=== PATIENT | male | born 1950 | race Hispanic/Latino ===

== ENCOUNTER 2017-06-11 13:16 | Inpatient (IN) | payer MEDICARE ==
[2017-06-11] MEDS ORDERED: Eptifibatide 20 mg/10mL Inj IV ONE (13:33)
[2017-06-11] MEDS ORDERED: Iohexol 350 MG/100 ML VIAL ONE (13:34)
[2017-06-11] MEDS ORDERED: Iohexol 350mgl/ml 50 ML ONE ×2 (13:34→13:57)
[2017-06-11] MEDS ORDERED: Lidocaine 2% Inj (20ml) ONE (13:34)
[2017-06-11] MEDS ORDERED: Phenylephrine 10 mg/ml Inj ONE (13:35)
--- NOTE | 2017-06-11 13:35 | ED PDOC ---
Arrival/HPI - General Time Seen by Provider: 06/11/17 13:27 Historian: Patient - History of Present Illness Narrative History of Present Illness (Text): 06/11/17 13:27 Jovan Horne is a 67 year old male who presents to the emergency department complaining of severe left arm pain that radiates up which began prior to arrival. Patient's family states that patient took one daily baby aspirin this morning. Patient denies any injury, chest pain, shortness of breath, back pain, leg swelling, or any other complaints at this time. PMD: Dr. Mitchel Santamaria Time/Duration: Prior to Arrival Symptom Onset: Sudden Symptom Course: Unchanged Context: Home Past Medical History - Provider Review Nursing Documentation Reviewed: Yes Family/Social History - Physician Review Nursing Documentation Reviewed: Yes Family/Social History: No Known Family HX Allergies/Home Meds Allergies/Adverse Reactions: Allergies No Known Allergies Allergy (Unverified 06/11/17 13:31) Home Medications: Home Meds Medication Instructions Recorded Confirmed Aspirin [Garnett Aspirin] 81 mg PO DAILY 06/11/17 06/11/17 Review of Systems - Physician Review All systems were reviewed & negative as marked: Yes - Review of Systems Constitutional: absent: Fevers, Night Sweats Eyes: absent: Vision Changes ENT: absent: Hearing Changes Respiratory: absent: SOB, Cough Cardiovascular: absent: Chest Pain Gastrointestinal: absent: Abdominal Pain Genitourinary Male: absent: Dysuria Musculoskeletal: Other (Left arm pain) Skin: absent: Rash Neurological: absent: Headache, Dizziness Physical Exam Vital Signs Reviewed: Yes Vital Signs Temp Pulse Resp BP Pulse Ox 06/11/17 13:43 66 16 187/100 H 98 06/11/17 13:27 98.9 F 66 18 188/93 H 100 Temperature: Afebrile Blood Pressure: Hypertensive Pulse: Regular Respiratory Rate: Normal Appearance: Positive for: Well-Appearing, Non-Toxic, Comfortable Pain Distress: None Mental Status: Positive for: Alert and Oriented X 3 - Systems Exam Head: Present: Atraumatic, Normocephalic Pupils: Present: PERRL Extroacular Muscles: Present: EOMI Conjunctiva: Present: Normal Mouth: Present: Moist Mucous Membranes Neck: Present: Normal Range of Motion Respiratory/Chest: Present: Clear to Auscultation, Good Air Exchange. No: Respiratory Distress, Accessory Muscle Use Cardiovascular: Present: Regular Rate and Rhythm, Normal S1, S2. No: Murmurs Abdomen: Present: Normal Bowel Sounds. No: Tenderness, Distention, Peritoneal Signs Back: Present: Normal Inspection Upper Extremity: Present: Normal Inspection. No: Cyanosis, Edema Lower Extremity: Present: Normal Inspection. No: Edema Neurological: Present: GCS=15, CN II-XII Intact, Speech Normal Skin: Present: Warm, Dry, Normal Color. No: Rashes Psychiatric: Present: Alert, Oriented x 3, Normal Insight, Normal Concentration Medical Decision Making ED Course and Treatment: 06/11/17 13:29 Impression: 67 year old male complaining of severe left arm pain that radiates up prior to arrival. Differential Diagnosis included but are not limited to: STEMI Plan: -- EKG -- Chest X-ray -- Labs -- Aspirin, Plavix, and Integrilin -- Reassess and disposition Progress Notes: EKG: Ordered, reviewed, and independently interpreted the EKG. Rate : 53 BPM Rhythm : Sinus bradycardia Interpretation : ST elevations greater than 1mm in inferior leads. Reciprocal ST depression in leads V2, V3, and V4. Comparison : No previous EKG for comparison. 06/11/17 13:30 Code Heart called on patient. Aspirin 162mg PO ordered. Patient only had a baby aspirin today. 06/11/17 13:[address] Saucedo, who recommends Plavix and Integrillin for patient. Discussed case with Dr. Ricki Santamaria, PMD who states to admit to the hospitalist. - Critical Care Critical Care Minutes: 30 minutes - Lab Interpretations Lab Results: 06/11/17 13:30 06/11/17 13:30 Lab Results 06/11/17 13:30: Sodium 141, Potassium 4.1, Chloride 103, Carbon Dioxide 22, Anion Gap 20, BUN 11, Creatinine 1.0, Est GFR ( Amer) > 60, Est GFR (Non- Af Amer) > 60, Random Glucose 88, Calcium 9.2, Total Bilirubin 1.0, AST 59, ALT 54, Alkaline Phosphatase 84, Lactate Dehydrogenase 542, Total Creatine Kinase 190, Troponin I 0.06, Total Protein 8.0, Albumin 4.7, Globulin 3.3, Albumin/ Globulin Ratio 1.4 06/11/17 13:30: PT 11.1, INR 1.03 06/11/17 13:30: WBC 6.5, RBC 4.82, Hgb 16.1, Hct 45.7, MCV 94.8, MCH 33.4, MCHC 35.2, RDW 13.9, Plt Count 174, MPV 9.9, Gran % 48.6 L, Lymph % (Auto) 38.9 H, [place] % (Auto) 9.1 H, Eos % (Auto) 2.5, Baso % (Auto) 0.9, Gran # 3.15, Lymph # 2.5, [place] # 0.6, Eos # 0.2, Baso # 0.06 I have reviewed the lab results: Yes - RAD Interpretation Radiology Orders: 06/11/17 13:33 CHEST PORTABLE [RAD] Stat - Medication Orders Current Medication Orders: Discontinued Medications Aspirin (Aspirin Chewable) 162 mg PO STAT STA Stop: 06/11/17 13:33 Aspirin (Aspirin Chewable) Confirm Administered Dose 162 mg .ROUTE .STK-MED ONE Stop: 06/11/17 13:36 Atropine Sulfate (Atropine) Confirm Administered Dose 1 mg .ROUTE .STK-MED ONE Stop: 06/11/17 13:34 Bivalirudin (Angiomax) Confirm Administered Dose 250 mg IV .STK-MED ONE Stop: 06/11/17 13:35 Clopidogrel Bisulfate (Plavix) 600 mg PO STAT STA Stop: 06/11/17 13:34 Clopidogrel Bisulfate (Plavix) Confirm Administered Dose 600 mg .ROUTE .STK-MED ONE Stop: 06/11/17 13:36 Eptifibatide (Integrilin Bolus) 14.7 mg 0.18 mg/kg (14.7 mg) IV ONCE ONE Stop: 06/11/17 13:34 Last Admin: 06/11/17 14:03 Dose: 7.3 mg Comments: 1st dose given to straight to cardiac cath Eptifibatide (Integrilin Bolus) Confirm Administered Dose 20 mg IVP .STK-MED ONE Stop: 06/11/17 13:50 Fentanyl (Fentanyl) Confirm Administered Dose 100 mcg .ROUTE .STK-MED ONE Stop: 06/11/17 13:56 Heparin Sodium (Porcine) (Heparin) Confirm Administered Dose 10,000 units .ROUTE .STK-MED ONE Stop: 06/11/17 13:46 Heparin Sodium (Porcine) (Heparin 1000 Units/500 Ml Ns) Confirm Administered Dose 1,500 mls @ ud IV .STK-MED ONE Stop: 06/11/17 13:35 Eptifibatide (Integrilin) Confirm Administered Dose 75 mg in 100 mls @ ud IV .STK-MED ONE Stop: 06/11/17 13:37 Eptifibatide (Integrilin) Confirm Administered Dose 75 mg in 100 mls @ ud IV .STK-MED ONE Stop: 06/11/17 13:50 Nitroglycerin/Dextrose (Nitroglycerin 50 Mg/250 Ml D5w) Confirm Administered Dose 50 mg in 250 mls @ ud IV .STK-MED ONE Stop: 06/11/17 14:13 Iodixanol (Visipaque 320 Mg/Ml 100 Ml) Confirm Administered Dose 100 ml IV .STK- MED ONE Stop: 06/11/17 13:37 Iodixanol (Visipaque 320 Mg/Ml 200 Ml) Confirm Administered Dose 200 ml IV .STK- MED ONE Stop: 06/11/17 13:37 Iohexol (Omnipaque 350mg/Ml 50 Ml) Confirm Administered Dose 50 ml .ROUTE .STK- MED ONE Stop: 06/11/17 13:35 Iohexol (Omnipaque 350 100 Ml) Confirm Administered Dose 350 mg .ROUTE .STK-MED ONE Stop: 06/11/17 13:35 Iohexol (Omnipaque 350 150 Ml) Confirm Administered Dose 150 ml .ROUTE .STK-MED ONE Stop: 06/11/17 13:35 Iohexol (Omnipaque 350mg/Ml 50 Ml) Confirm Administered Dose 50 ml .ROUTE .STK- MED ONE Stop: 06/11/17 13:58 Lidocaine HCl (Lidocaine 2% 20ml Vial) Confirm Administered Dose 20 ml .ROUTE .STK-MED ONE Stop: 06/11/17 13:35 Midazolam HCl (Versed Inj) Confirm Administered Dose 2 mg .ROUTE .STK-MED ONE Stop: 06/11/17 13:56 Midazolam HCl (Versed Inj) Confirm Administered Dose 2 mg .ROUTE .STK-MED ONE Stop: 06/11/17 14:20 Phenylephrine HCl (Phenylephrine Inj) Confirm Administered Dose 10 mg .ROUTE .STK-MED ONE Stop: 06/11/17 13:36 - Scribe Statement The provider has reviewed the documentation as recorded by the Kriss Galaviz Provider Scribe Attestation: All medical record entries made by the Scribe were at my direction and personally dictated by me. I have reviewed the chart and agree that the record accurately reflects my personal performance of the history, physical exam, medical decision making, and the department course for this patient. I have also personally directed, reviewed, and agree with the discharge instructions and disposition. Disposition/Present on Arrival - Present on Arrival Any Indicators Present on Arrival: No - Disposition Have Diagnosis and Disposition been Completed?: Yes Diagnosis: STEMI (ST elevation myocardial infarction) Disposition Time: 13:36 Patient Plan: Admission Condition: CRITICAL
[2017-06-11] MEDS ORDERED: Eptifibatide 0.75 mg/ml 0 MG/0 ML BOTTLE IV ONE ×2 (13:36→13:49)
[2017-06-11] MEDS ORDERED: Iodixanol 320 MG/ML 200 ML BOTTLE IV ONE (13:36)
[2017-06-11] MEDS ORDERED: Iodixanol 320 MG/ML 100 ML BOTTLE IV ONE (13:36)
[2017-06-11 13:40] LABS: BASO # 0.06 K/mm3 (0.0-2.0); BASO % 0.9 % (0.0-3.0); EOS # 0.2 (0.0-0.7); EOS % 2.5 % (1.5-5.0); GRAN # 3.15 (1.4-6.5); GRAN % 48.6 % (50.0-68.0); HEMATOCRIT 45.7 % (42.0-52.0); LYMPH # 2.5 (1.2-3.4); LYMPH % 38.9 % (22.0-35.0); MEAN CELL VOLUME 94.8 fl (80.0-105.0); MEAN CORPUSCULAR HEMOGLOBIN 33.4 pg (25.0-35.0); MEAN CORPUSCULAR HGB CONC 35.2 g/dl (31.0-37.0); MEAN PLATELET VOLUME 9.9 fl (7.0-11.0); MONO # 0.6 (0.1-0.6); MONO % 9.1 % (1.0-6.0); RED CELL DISTRIBUTION WIDTH 13.9 % (11.5-14.5); WHITE BLOOD COUNT 6.5 10^3/ul (4.5-11.0)
[2017-06-11 13:47] LABS: ALB/GLOB RATIO 1.4 (1.1-1.8); ALKALINE PHOSPHATASE 84 U/L (38-133); ALT/SGPT 54 U/L (7-56); AST/SGOT 59 U/L (15-59); BLOOD UREA NITROGEN 11 mg/dL (7-21); CALCIUM 9.2 mg/dL (8.4-10.5); CARBON DIOXIDE 22 mmol/L (21-33); CHLORIDE 103 mmol/L (98-107); GFR AFRICAN-AMERICAN > 60; GLUCOSE,RANDOM 88 mg/dL (70-110); POTASSIUM 4.1 mmol/L (3.6-5.0); SODIUM 141 mmol/L (132-148)
[2017-06-11 13:49] LABS: INR 1.03 (0.93-1.08)
[2017-06-11] MEDS ORDERED: Eptifibatide 20 mg/10mL Inj IVP ONE (13:49)
[2017-06-11] MEDS ORDERED: Midazolam 2 MG/2 ML VIAL ONE ×3 (13:55→14:49)
[2017-06-11 13:58] LABS: TROPONIN I 0.06 ng/mL
[2017-06-11] MEDS: Eptifibatide 0.75 mg/ml 75 MG/100 ML BOTTLE IV SCH ×2 (14:00→20:00)
--- NOTE | 2017-06-11 14:01 | RAD ---
HISTORY: chest pain COMPARISON: No prior. FINDINGS: LUNGS: No active pulmonary disease. PLEURA: No significant pleural effusion identified, no pneumothorax apparent. CARDIOVASCULAR: Normal. OSSEOUS STRUCTURES: No significant abnormalities. VISUALIZED UPPER ABDOMEN: Normal. OTHER FINDINGS: None. IMPRESSION: No active disease.
[2017-06-11] MEDS ORDERED: Nitroglycerin 50mg in D5W 50 MG/250 ML BOTTLE IV ONE (14:12)
--- NOTE | 2017-06-11 14:26 | CP.PCM.PN ---
Subjective - Date & Time of Evaluation Date of Evaluation: 06/11/17 Time of Evaluation: 13:29 - Subjective Subjective: Responded to code heart in the ER, called at 1:29 PM. Patient initially evaluated by ER physician, who initiated treatment. Transferred patient to the clinical laboratory manager with O2 and field examiner in place, accompanied by ER staff, resident automation driver, and house doctor, no events en route. Patient endorsed to clinical laboratory manager staff. Objective - Vital Signs/Intake and Output Vital Signs (last 24 hours): Temp Pulse Resp BP Pulse Ox 98.9 F 66 16 187/100 H 98 06/11/17 13:27 06/11/17 13:43 06/11/17 13:43 06/11/17 13:43 06/11/17 13:43 - Labs Labs: 06/11/17 13:30 06/11/17 13:30
[2017-06-11] MEDS ORDERED: DOBUTamine 500mg/250ml D5W 500 MG/250 ML BAG ONE (14:55)
[2017-06-11] MEDS ORDERED: Sodium Chloride 0.9% 1,000 ML IV SCH (15:30)
--- NOTE | 2017-06-11 16:34 | CARD ---
APPROVED REPORT EKG Measurement Heart [id number] OH [id number] <Conclusion> Sinus bradycardia ST elevation, consider inferior injury or acute infarct ACUTE DE Consider right ventricular involvement in acute inferior infarct Abnormal ECG
--- NOTE | 2017-06-11 17:47 | CARD ---
APPROVED REPORT EKG Measurement Heart [id number] DC [id number] <Conclusion> Normal sinus rhythm Normal ECG
--- NOTE | 2017-06-11 17:47 | CP.PCM.CON ---
<JOSE GIRON - Last Filed: 06/11/17 17:31> History of Present Illness - History of Present Illness History of Present Illness: ICU CONSULT NOTE: CC: Left Arm Pain HPI: Mr. Horne is a 67 year old male with a past medical history significant for HTN, HLD, carotid artery stenosis and gout who presented to the ED complaining of 24 hours of left arm pain. Patient states that he began to experience a dull pain radiating from his left shoulder to his left elbow earlier today while at rest with no known precipitating event. He states that he had never had this pain before and reported no alleviating/aggravating factors. Patient reports taking a baby aspirin with minimal to no relief and then decided he needed further evaluation when he began to feel the pain radiating to his neck. Patient denies experiencing any fever, chills, headache, changes in vision, LOC, dizziness, jaw pain, chest pain, palpitations, shortness of breath, cough, abdominal pain, N/V, diarrhea or any other numbness/ tingling/weakness of any of his other extremities. Upon arrival to the [facility] ED, patient was found to be having an acute inferior wall STEMI on an EKG, for which a code heart was called, given integrilin, and was immediately taken to cardiac laborer heading. Two NELL stents were placed in the proximal and mid RCA, respectively. Currently, patient reports that he has some residual chest pain but that it is only mild discomfort. He reports being otherwise asymptomatic. denies experiencing any fever, chills, headache, changes in vision, LOC, dizziness, jaw pain, chest pain, palpitations, shortness of breath, cough, abdominal pain, N/V, diarrhea, constipation, any urinary symptoms, or any other numbness/ tingling/weakness of any extremity. PMH: HTN, HLD, Carotid Artery Stenosis, and Gout PSH: None Family: 5 sisters and 1 brother with various cardiac history, including CAD and CA's. 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 with his Allergies: NKDA Home Medications: Colchicine and one ASA 81mg daily Review of Systems - Review of Systems Review of Systems: Please refer to HPI Past Patient History - Infectious Disease Hx of Infectious Diseases: None - Past Social History Smoking Status: Unknown If Ever Smoked - PSYCHIATRIC Hx Substance Use: No - ANESTHESIA Hx Anesthesia: No Meds Allergies/Adverse Reactions: Allergies Allergy/AdvReac Type Severity Reaction Status Date / Time No Known Allergies Allergy Unverified 06/11/17 13:31 - Medications Medications: Current Medications Aspirin (Ecotrin) 81 mg PO DAILY [facility] Atorvastatin Calcium (Lipitor) 40 mg PO DIN [facility] Clopidogrel Bisulfate (Plavix) 75 mg PO DAILY [facility] Folic Acid (Folic Acid) 1 mg PO DAILY [facility] Heparin Sodium (Porcine) (Heparin) 5,000 units SC Q12 [facility] PRN Reason: Protocol Sodium Chloride (Sodium Chloride 0.9%) 1,000 mls @ 100 mls/hr IV .Q10H [facility] Stop: 06/11/17 23:00 Lorazepam (Ativan) 2 mg IVP Q6H PRN; Protocol PRN Reason: Anxiety Multivitamins/Minerals (Therapeutic-M Tab) 1 tab PO 0800 [facility] Ondansetron HCl (Zofran Inj) 4 mg IVP Q4H PRN PRN Reason: Nausea/Vomiting Pantoprazole Sodium (Protonix Ec Tab) 40 mg PO 0600 [facility] Thiamine HCl (Vitamin B1 Tab) 100 mg PO DAILY [facility] Physical Exam - Constitutional Appears: Non-toxic, No Acute Distress - Head Exam Head Exam: ATRAUMATIC, NORMOCEPHALIC - Eye Exam Eye Exam: EOMI, Normal appearance, PERRL Pupil Exam: NORMAL ACCOMODATION - ENT Exam ENT Exam: Mucous Membranes Moist, Normal Exam, Normal Oropharynx - Neck Exam Neck exam: Positive for: Full Rom. Negative for: Lymphadenopathy - Respiratory Exam Respiratory Exam: Clear to Auscultation Bilateral, NORMAL BREATHING PATTERN. absent: Rales, Rhonchi, Wheezes, Respiratory Distress - Cardiovascular Exam Cardiovascular Exam: REGULAR RHYTHM, RRR, +S1, +S2. absent: Tachycardia, Systolic Murmur - GI/Abdominal Exam GI & Abdominal Exam: Normal Bowel Sounds, Soft. absent: Tenderness - Exam Exam: absent: Bladder Distension - Extremities Exam Extremities exam: Positive for: normal capillary refill, normal inspection, pedal pulses present. Negative for: calf tenderness, pedal edema - Back Exam Back exam: absent: CVA tenderness (L), CVA tenderness (R) - Neurological Exam Neurological exam: Alert, Oriented x3 - Psychiatric Exam Psychiatric exam: Normal Affect, Normal Mood - Skin Skin Exam: Dry, Intact, Normal Color, Warm Results - Vital Signs Recent Vital Signs: Last Vital Signs Temp 98.9 F 06/11/17 13:27 Pulse 66 06/11/17 17:20 Resp 16 06/11/17 17:20 BP 158/105 H 06/11/17 17:15 Pulse Ox 98 06/11/17 17:20 - Labs Result Diagrams: 06/11/17 13:30 06/11/17 13:30 Assessment & Plan - Assessment and Plan (Free Text) Assessment: 67 year old male with a past medical history significant for HTN, HLD, carotid artery stenosis and gout who presented to the ED complaining of 24 hours of left arm pain. Patient was found to have an inferior wall STEMI, taken to cardiac laborer heading, and two NELL stents were placed in the proximal and mid RCA. Plan: Neuro: -Patient reports history of chronic alcohol abuse -Start daily PO Thiamine, Folic Acid and MV supplements -Ativan 2mg IVP Q6H PRN for symptoms of alcohol withdrawal -CIWA Protocol and Seizure Precautions Cardio: -Two NELL stents placed in proximal and mid RCA -Single troponin found to be mildly elevated at 0.06 in ED -EKG in ED showed sinus bradycardia and ST elevations greater than 1mm in inferior leads with reciprocal ST depression in leads V2, V3, and V4 -Post Cath repeat EKG shows NSR and resolution of previously mentioned ST segment changes -Continue Integrilin, ASA, Plavix and Lipitor -Repeat EKG and ECHO ordered for 0700 on 06/12 -Lipid panel, Hemoglobin A1C and TSH pending -Dr. Saucedo, machine paint mixer, is following patient while at [facility] GI: -Heart Healthy Diet -Zofran 4mg IVP Q4H PRN for N/V GI Prophylaxis: Protonix DVT Prophylaxis: SCD's Patient seen and case discussed with attending, Dr. Stafford. - Date & Time Date: 06/11/17 Time: 17:49 <Tristian Claudio - Last Filed: 06/11/17 18:16> Meds - Medications Medications: Current Medications Aspirin (Ecotrin) 81 mg PO DAILY [facility] Atorvastatin Calcium (Lipitor) 40 mg PO DIN [facility] Clopidogrel Bisulfate (Plavix) 75 mg PO DAILY [facility] Folic Acid (Folic Acid) 1 mg PO DAILY [facility] Sodium Chloride (Sodium Chloride 0.9%) 1,000 mls @ 100 mls/hr IV .Q10H [facility] Stop: 06/11/17 23:00 Eptifibatide (Integrilin) 75 mg in 100 mls @ 12.779 mls/hr IV .Q7H50M [facility]; 2 MCG/KG/MIN PRN Reason: Protocol Stop: 06/12/17 08:52 Lorazepam (Ativan) 2 mg IVP Q6H PRN; Protocol PRN Reason: Anxiety Multivitamins/Minerals (Therapeutic-M Tab) 1 tab PO 0800 [facility] Ondansetron HCl (Zofran Inj) 4 mg IVP Q4H PRN PRN Reason: Nausea/Vomiting Pantoprazole Sodium (Protonix Ec Tab) 40 mg PO 0600 [facility] Thiamine HCl (Vitamin B1 Tab) 100 mg PO DAILY [facility] Results - Vital Signs Recent Vital Signs: Last Vital Signs Temp 98.9 F 06/11/17 13:27 Pulse 66 06/11/17 17:20 Resp 16 06/11/17 17:20 BP 158/105 H 06/11/17 17:15 Pulse Ox 98 06/11/17 17:20 - Labs Result Diagrams: 06/11/17 13:30 06/11/17 13:30 Assessment & Plan - Assessment and Plan (Free Text) Plan: Patient seen and examined with resident, agree with HPI, A/P. Patient is 67yo male with PMhx of HTN, HLD, EtOH abuse, presents with Left sided chest pain/arm pain, found to have STEMI, inferior leads, with stents placed to RCA. Currently the patient is afebrile, HD stable, comfortable, with minimal left sided chest pain. No other constitutional symptoms. CAD/STEMI EtOH abuse Recommend: - Thiamine, folic acid, MVT - IVF - Ativan PRN - CIWA protocol - ASA, Plavix, Statin - BB - Integrellin x 18hours - Check Lipid Panel, HgbA1C - DVT ppx, SCDs - Low chol diet
[2017-06-11 18:31] VITALS: BMI 27.3
[2017-06-11] MEDS ORDERED: Pneumococcal 23-Valent Vaccine IM ONE (18:32)
--- NOTE | 2017-06-11 21:34 | CARDCATH ---
PROCEDURE DATE: 06/11/2017 PERFORMING PHYSICIAN: Jim Saucedo MD HISTORY: The patient is a 67-year-old male who presents with chest pain with shoulder pain radiating to the left arm since this morning. The patient has no previous cardiac history. His cardiac risk factors include a history of hypertension as well as extensive secondary smoke from his . No diabetes mellitus noted. SOCIAL HISTORY: The patient does not smoke but is alcoholic with multiple beers per day. REVIEW OF SYSTEMS: A 14-point review of systems was reviewed in detail. His cardiac symptomatology were as above. Because of the acute inferior wall myocardial infarction, the patient was brought to the catheterization laboratory technician emergently. PROCEDURE: Emergency cardiac catheterization and percutaneous transluminal coronary angioplasty. DESCRIPTION OF PROCEDURE: The right femoral artery was cannulated with a 6-Thai sheath. There was no complication. Initial coronary arteriography revealed an occluded proximal RCA with evidence of thrombus. The left main artery was unremarkable. The ostium of the LAD revealed a 60% stenoses. The midportion of the LAD revealed a 60-70% stenoses. Diagonal vessels revealed intimal irregularities. The circumflex artery and obtuse marginal branches revealed intimal irregularities without significant stenoses. LV gram revealed normal LV function with an EF of 60%. The patient was given 4000 units of intravenous heparin, which resulted in ACT of 290 at the end of the procedure. The patient had received aspirin, Plavix, as well as intravenous Integrilin in the ER. The guiding catheter was placed in the ostium of the RCA and 0.014 ATW wire was used to cross the RCA. A 2.0 balloon was utilized to predilate the lesion. After balloon dilatation, the patient became asystolic as well as severely hypotensive, which responded to atropine as well as pressors. He was started on intravenous dobutamine. Once the patient regained pressures of 90, 2.5 balloon was utilized to dilate the lesion. This is followed by placement of a 3.5 x 18 mm drug-eluting stent, which was deployed at 70 atmospheres of pressure. Repeat coronary angiography reveals an excellent result with no residual stenosis and SANTY III flow. Angio-Seal was used to close the femoral artery site. The dobutamine was tapered off and the patient's blood pressure returned to 140 systolic with a heart rate of 90. The patient was transferred to the coronary care unit in stable condition. SUMMARY: In summary, the procedure was successful for an emergency PTCA and stent of an occluded proximal RCA stenoses. Cardiac catheterization reveals two-vessel CAD. LV function is normal. Transient cardiogenic shock secondary to asystole during the procedure, responding to medical therapy. Given these findings, the patient will need to remain on aspirin and Plavix as well as Integrilin for the next 18 hours. In addition, I have discussed the need to stop drinking given his alcoholism. I have discussed with the family about the need to have the patient avoid all the secondary smoke that he is receiving. Jim Saucedo MD
--- NOTE | 2017-06-12 00:01 | CP.PCM.HP ---
<SISI FRANKEL - Last Filed: 06/11/17 23:46> History of Present Illness - History of Present Illness History of Present Illness: CC: Left arm pain HPI: 67 yo M with a PMH of gout, chronic alchohol abuse, carotid stenosis and previously with HTN and HLD now off medications presented to the ER, ambulatory , for L arm pain for the prior two hours. First noted when walking his dog, and it improved after resting, but then returned spontaneously, and was 10/10 in severity. He denied SOB, CP, N/V, GEORGE, dizziness. In the ER, EKG showed STEMI and code heart was called. Patient was given ASA, plavix, and integrilin in the ER, and was rushed the laborer mine, where he had PCI with placement of a drug eluting stent in the proximal RCA. F/u EKG showed NSR with no ST elevations. 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 Sedentary lifestyle with poor diet. All: NKDA Constitutional: pt denies fever, chills, generalized weakness ENT: pt denies dysphagia, otalgia, hearing deficit, rhinorrhea Eyes: pt denies sudden loss of vision, diplopia, blurred vision MSK: +Left upper arm pain pt denies muscle stiffness, joint pain, extremity cramping Cardio: pt denies sob, heart murmur, CP Pulm: pt denies cough, hemoptysis, wheeze GI: pt denies loss of appetite, abdominal pain, constipation, melena, n/v/d : pt denies burning on urination, urinary frequency, hematuria, urinary urgency Neuro: pt denies paresis, paresthesia, dizziness, george, numbness, tingling Derm: pt denies skin changes, lesions, nail changes Endo: pt denies intolerance to heat/cold, diaphoresis, night sweats, polydipsia Psych: pt denies anxiety, depression, mood changes Present on Admission - Present on Admission Any Indicators Present on Admission: No Past Patient History - Infectious Disease Hx of Infectious Diseases: None - Past Social History Smoking Status: Unknown If Ever Smoked - CARDIAC Hx Hypertension: Yes Other/Comment: Carotid stenosis - MUSCULOSKELETAL/RHEUMATOLOGICAL Hx Falls: No Other/Comment: "Maciej Horse" - GASTROINTESTINAL Other/Comment: Alcoholism - PSYCHIATRIC Hx Substance Use: No - ANESTHESIA Hx Anesthesia: No Meds Allergies/Adverse Reactions: Allergies Allergy/AdvReac Type Severity Reaction Status Date / Time No Known Allergies Allergy Unverified 06/11/17 13:31 Physical Exam - Constitutional Appears: Non-toxic, No Acute Distress - Head Exam Head Exam: ATRAUMATIC, NORMOCEPHALIC - Eye Exam Eye Exam: EOMI, Normal appearance, PERRL - ENT Exam ENT Exam: Mucous Membranes Moist - Neck Exam Neck exam: Negative for: Lymphadenopathy, Tenderness - Respiratory Exam Respiratory Exam: Clear to Auscultation Bilateral, NORMAL BREATHING PATTERN. absent: Rales, Rhonchi, Wheezes - Cardiovascular Exam Cardiovascular Exam: RRR, +S1, +S2 - GI/Abdominal Exam GI & Abdominal Exam: Normal Bowel Sounds, Soft. absent: Tenderness - Extremities Exam Extremities exam: Positive for: normal inspection. Negative for: calf tenderness, pedal edema - Neurological Exam Neurological exam: Alert, CN II-XII Intact, Oriented x3 - Psychiatric Exam Psychiatric exam: Normal Affect, Normal Mood - Skin Skin Exam: Dry, Intact, Normal Color Results - Vital Signs Recent Vital Signs: Last Vital Signs Temp 98 F 06/11/17 16:23 Pulse 68 06/11/17 18:30 Resp 13 06/11/17 18:30 BP 141/90 06/11/17 18:30 Pulse Ox 94 L 06/11/17 18:30 - Labs Result Diagrams: 06/11/17 13:30 06/11/17 13:30 Assessment & Plan - Assessment and Plan (Free Text) Assessment: 67 yo M with PMH of carotid stenosis, gout, HTN, HLD with STEMI s/p PCI and NELL placement today, admitted to ICU Plan: 1. STEMI s/p PCI and stent - Patient initially presented with left arm pain, found to have inferior wall STEMI, code heart called - Received ASA, plavix, and integrilin in ER - s/p PCI and drug eluting stent placement in proximal RCA today with improvement in symptoms and EKG changes - On ASA, Plavix, Integrilin, and Lipitor per cardio - Repeat EKG and ECHO ordered for tomorrow AM - Lipid panel, Hemoglobin A1C and TSH pending - Dr. Saucedo, perfect bind machine operator, is following patient while at [facility] [place] - Groin checks Q1 - Heart healthy diet 2. History of alcohol abuse - CIWA protocol started - On thiamine, folate, MVT - On Ativan PRN - Discussed importance of cessation GI Prophylaxis: Protonix DVT Prophylaxis: SCD's Patient seen and case discussed with attending <Roxana Simmons - Last Filed: 06/12/17 16:27> Results - Vital Signs Recent Vital Signs: Last Vital Signs Temp 97 F L 06/12/17 11:30 Pulse 58 L 06/12/17 14:00 Resp 16 06/12/17 11:30 BP 136/87 06/12/17 11:30 Pulse Ox 98 06/12/17 10:15 - Labs Result Diagrams: 06/12/17 05:30 06/12/17 05:30 Labs: Laboratory Results - last 24 hr 06/12/17 06/12/17 06/12/17 05:30 05:30 05:30 WBC 4.5 D RBC 4.50 Hgb 14.8 Hct 43.0 MCV 95.6 MCH 32.9 MCHC 34.4 RDW 14.2 Plt Count 149 MPV 10.0 Gran % 64.3 Lymph % (Auto) 24.7 [place] % (Auto) 8.4 H Eos % (Auto) 2.2 Baso % (Auto) 0.4 Gran # 2.91 Lymph # 1.1 L [place] # 0.4 Eos # 0.1 Baso # 0.02 Sodium 137 Potassium 4.1 Chloride 105 Carbon Dioxide 24 Anion Gap 12 BUN 10 Creatinine 0.8 Est GFR ( Amer) > 60 Est GFR (Non-Af Amer) > 60 Random Glucose 102 Hemoglobin A1c 4.9 Calcium 8.8 Triglycerides 164 H Cholesterol 239 H LDL Cholesterol Direct 188 H HDL Cholesterol 52 TSH 3rd Generation 06/12/17 05:30 WBC RBC Hgb Hct MCV MCH MCHC RDW Plt Count MPV Gran % Lymph % (Auto) [place] % (Auto) Eos % (Auto) Baso % (Auto) Gran # Lymph # [place] # Eos # Baso # Sodium Potassium Chloride Carbon Dioxide Anion Gap BUN Creatinine Est GFR ( Amer) Est GFR (Non-Af Amer) Random Glucose Hemoglobin A1c Calcium Triglycerides Cholesterol LDL Cholesterol Direct HDL Cholesterol TSH 3rd Generation 4.1 Attending/Attestation - Attestation I have personally seen and examined this patient.: Yes I have fully participated in the care of the patient.: Yes I have reviewed all pertinent clinical information: Yes Notes (Text): I have seen and examined the patient at bedside. Agree with the above note with the following additions/ exceptions: Briefly this is 67 year old male with history of HTN, HLD, EtOH abuse, former smoker who walked into the ED and code heart/ STEMI was called. He underwent cardiac cath and stents were placed in proximal RCA. He is on asa, plavix, statins, lipitor and integrillin. Upon discharge patient will follow up with Dr Santamaria. Dr Roxana Simmons.
[2017-06-12] MEDS ORDERED: Morphine 2 mg/ml ISec IVP ONE (02:43)
[2017-06-12] MEDS: Eptifibatide 0.75 mg/ml 75 MG/100 ML BOTTLE IV SCH (04:46)
[2017-06-12] MEDS ORDERED: Pantoprazole 40 mg EC Tab PO SCH (06:00)
[2017-06-12 06:30] LABS: BASO # 0.02 K/mm3 (0.0-2.0); BASO % 0.4 % (0.0-3.0); EOS # 0.1 (0.0-0.7); EOS % 2.2 % (1.5-5.0); GRAN # 2.91 (1.4-6.5); GRAN % 64.3 % (50.0-68.0); LYMPH # 1.1 (1.2-3.4); LYMPH % 24.7 % (22.0-35.0); MEAN CELL VOLUME 95.6 fl (80.0-105.0); MEAN CORPUSCULAR HEMOGLOBIN 32.9 pg (25.0-35.0); MEAN CORPUSCULAR HGB CONC 34.4 g/dl (31.0-37.0); MONO # 0.4 (0.1-0.6); MONO % 8.4 % (1.0-6.0); RED CELL DISTRIBUTION WIDTH 14.2 % (11.5-14.5); WHITE BLOOD COUNT 4.5 10^3/ul (4.5-11.0)
[2017-06-12 06:47] LABS: BLOOD UREA NITROGEN 10 mg/dL (7-21); CALCIUM 8.8 mg/dL (8.4-10.5); CARBON DIOXIDE 24 mmol/L (21-33); CHLORIDE 105 mmol/L (95-110); CHOLESTEROL 239 mg/dL (130-200); GFR AFRICAN-AMERICAN > 60; GLUCOSE,RANDOM 102 mg/dL (70-110); POTASSIUM 4.1 mmol/L (3.6-5.0); SODIUM 137 mmol/L (132-148)
[2017-06-12] MEDS: Multivitamin With Minerals Tab PO SCH (08:18)
--- NOTE | 2017-06-12 11:42 | CARD ---
APPROVED REPORT EKG Measurement Heart [id number] <Conclusion> Sinus bradycardia Inferior infarct, age undetermined Abnormal ECG
--- NOTE | 2017-06-12 16:18 | CP.PCM.PN ---
<MATTHEW FRANKELJOSAFAT - Last Filed: 06/12/17 16:07> Subjective - Date & Time of Evaluation Date of Evaluation: 06/12/17 Time of Evaluation: 07:30 - Subjective Subjective: Modesta Frankel DO PGY1 - Medicine Progress Note Patient seen and examined at bedside. Patient was awake, alert, and in no acute distress.He denied any acute chest pain over night. Left arm pain dramatically improved, though still lingering very slightly. He denies CP, SOB, n/v, F/C. No tremor was present. Objective - Vital Signs/Intake and Output Vital Signs (last 24 hours): Temp Pulse Resp BP Pulse Ox 97 F L 58 L 16 136/87 98 06/12/17 11:30 06/12/17 14:00 06/12/17 11:30 06/12/17 11:30 06/12/17 10:15 Intake and Output: 06/12/17 06/12/17 06:59 18:59 Intake Total 153 360 Output Total 1350 800 Balance -1197 -440 - Medications Medications: Current Medications Aspirin (Ecotrin) 81 mg PO DAILY [facility] Last Admin: 06/12/17 09:16 Dose: 81 mg Atorvastatin Calcium (Lipitor) 40 mg PO DIN [facility] Last Admin: 06/11/17 18:52 Dose: 40 mg Clopidogrel Bisulfate (Plavix) 75 mg PO DAILY [facility] Last Admin: 06/12/17 09:16 Dose: 75 mg Folic Acid (Folic Acid) 1 mg PO DAILY [facility] Last Admin: 06/12/17 09:16 Dose: 1 mg Lorazepam (Ativan) 2 mg IVP Q6H PRN; Protocol PRN Reason: Anxiety Last Admin: 06/12/17 15:14 Dose: 2 mg Multivitamins/Minerals (Therapeutic-M Tab) 1 tab PO 0800 [facility] Last Admin: 06/12/17 08:18 Dose: 1 tab Ondansetron HCl (Zofran Inj) 4 mg IVP Q4H PRN PRN Reason: Nausea/Vomiting Thiamine HCl (Vitamin B1 Tab) 100 mg PO DAILY [facility] Last Admin: 06/12/17 09:16 Dose: 100 mg - Labs Labs: 06/12/17 05:30 06/12/17 05:30 PT 11.1 Seconds (9.9-11.8) 06/11/17 13:30 INR 1.03 (0.93-1.08) 06/11/17 13:30 - Constitutional Appears: Non-toxic, No Acute Distress - Head Exam Head Exam: ATRAUMATIC, NORMOCEPHALIC - Eye Exam Eye Exam: EOMI, Normal appearance, PERRL - ENT Exam ENT Exam: Mucous Membranes Moist - Neck Exam Neck Exam: absent: Lymphadenopathy, Thyromegaly - Respiratory Exam Respiratory Exam: Clear to Ausculation Bilateral. absent: Rales, Rhonchi, Wheezes - Cardiovascular Exam Cardiovascular Exam: Bradycardia, RRR, +S1, +S2 - GI/Abdominal Exam GI & Abdominal Exam: Soft. absent: Distended, Firm, Guarding, Rigid, Tenderness Assessment and Plan - Assessment and Plan (Free Text) Assessment: 67 yo M with PMH of carotid stenosis, gout, HTN, HLD with inferior wall STEMI s/ p PCI and NELL placement yesterday. Patient is being monitored in ICU. Plan: 1. STEMI s/p PCI and stent - Patient initially presented with 2hr left arm pain, found to have inferior wall STEMI, code heart called, taken to medical lab tech instructor for PCI - s/p PCI and drug eluting stent placement in proximal RCA yesterday with subsequent improvement in symptoms and EKG changes - No active CP or arm pain today - On ASA, Plavix, and Lipitor per cardio; will discontinue Integrilin 18hrs s/p PCI - Patient reported briefly had cardiogenic shock during cath with asystole, though quickly responded to atropine and pressors. - Patient remains persistently borderline bradycardic, though hemodynamically stable, avoid beta blockers - Lipid panel: LDL 188, Cholesterol 239, LDL 188 - Lipitor resumed - Hemoglobin A1C: 4.9, TSH: 4.1 - Dr. Saucedo, absorption plant operator, is following patient while at [facility] [place] - Heart healthy diet - Repeat EKG this AM showed sinus bradycardia and an age indeterminate inferior wall infarction but no STEMI, repeated this afternoon, shows sinus bradycardia with no ST changes - Echo completed, pending read - Will transfer to tele today 2. History of alcohol abuse - [facility] protocol - On thiamine, folate, MVT - On Ativan and Zofran PRN - Reinforced importance of cessation GI Prophylaxis: Protonix DVT Prophylaxis: SCD's Patient will be transferred to telemetry today Patient seen and case discussed with attending <Simmons,Irfana B - Last Filed: 06/12/17 16:33> Objective - Vital Signs/Intake and Output Vital Signs (last 24 hours): Temp Pulse Resp BP Pulse Ox 97 F L 58 L 16 136/87 98 06/12/17 11:30 06/12/17 14:00 06/12/17 11:30 06/12/17 11:30 06/12/17 10:15 Intake and Output: 06/12/17 06/12/17 06:59 18:59 Intake Total 153 360 Output Total 1350 800 Balance -1197 -440 - Medications Medications: Current Medications Aspirin (Ecotrin) 81 mg PO DAILY [facility] Last Admin: 06/12/17 09:16 Dose: 81 mg Atorvastatin Calcium (Lipitor) 40 mg PO DIN [facility] Last Admin: 06/11/17 18:52 Dose: 40 mg Clopidogrel Bisulfate (Plavix) 75 mg PO DAILY [facility] Last Admin: 06/12/17 09:16 Dose: 75 mg Folic Acid (Folic Acid) 1 mg PO DAILY [facility] Last Admin: 06/12/17 09:16 Dose: 1 mg Lorazepam (Ativan) 2 mg IVP Q6H PRN; Protocol PRN Reason: Anxiety Last Admin: 06/12/17 15:14 Dose: 2 mg Multivitamins/Minerals (Therapeutic-M Tab) 1 tab PO 0800 [facility] Last Admin: 06/12/17 08:18 Dose: 1 tab Ondansetron HCl (Zofran Inj) 4 mg IVP Q4H PRN PRN Reason: Nausea/Vomiting Thiamine HCl (Vitamin B1 Tab) 100 mg PO DAILY [facility] Last Admin: 06/12/17 09:16 Dose: 100 mg - Labs Labs: 06/12/17 05:30 06/12/17 05:30 PT 11.1 Seconds (9.9-11.8) 06/11/17 13:30 INR 1.03 (0.93-1.08) 06/11/17 13:30 Attending/Attestation - Attestation I have personally seen and examined this patient.: Yes I have fully participated in the care of the patient.: Yes I have reviewed all pertinent clinical information, including history, physical exam and plan: Yes Notes (Text): I have seen and examined the patient at bedside. Agree with the above note with the following additions/ exceptions: Briefly this is 67 year old male with history of HTN, HLD, EtOH abuse, former smoker who walked into the ED and code heart/ STEMI was called. He underwent cardiac cath and stents were placed in proximal RCA. Patient reported briefly had cardiogenic shock during cath with asystole, though quickly responded to atropine and pressors. He still has bradycardia however hemodynamically stable. Patient is being transferred to telemetry. As patient has long history of alcohol abuse, we will monitor carefully for withdrawal symptoms. He is on ativan prn, thiamine, MVI and folic acid. Counselling was provided yesterday regarding alcohol abuse. Upon discharge patient will follow up with Dr Santamaria. Dr Roxana Simmons.
--- NOTE | 2017-06-12 16:45 | PN ---
DATE: 06/12/2017 SUBJECTIVE: The patient is chest pain free. The patient is status post emergency PTCA and stent for an acute inferior wall myocardial infarction. PHYSICAL EXAMINATION: VITAL SIGNS: Blood pressure 136/87, heart rate 57, normal sinus rhythm. NECK: Negative JVD. LUNGS: Without rales. HEART: S1, S2. EXTREMITIES: Without edema. The right groin site is stable. Cholesterol was 239 with a triglyceride of 164. The hemoglobin is 14.8. IMPRESSION 1. Status post emergency PTCA and stent of an occluded RCA. 2. Status post acute inferior wall myocardial infarction. 3. Hypercholesterolemia. 4. Status post sinus arrest. 5. Alcoholism. Given these findings, we will continue him on his aspirin and Plavix. We will discontinue the Protonix. I have discussed with the patient about the need to stop drinking. In addition, I have discussed with the patient's family about the need to stop smoking in the house while the patient is in the house. Jim Saucedo MD
--- NOTE | 2017-06-12 17:37 | CARD ---
APPROVED REPORT EKG Measurement Heart [id number] MI [id number] <Conclusion> Sinus bradycardia Inferior T wave inversions Abnormal ECG
--- NOTE | 2017-06-12 18:48 | CARD ---
APPROVED REPORT EXAM: Two-dimensional and M-mode echocardiogram with Doppler and color Doppler. INDICATION STEMI 2D DIMENSIONS Left Atrium (2D)3.8 (1.6-4.0cm)IVSd1.0 (0.7-1.1cm) LVDd4.8 (3.9-5.9cm)PWd1.1 (0.7-1.1cm) M-Mode DIMENSIONS Aortic Root3.60 (2.2-3.7cm)Aortic Cusp Exc.1.80 (1.5-2.0cm) Aortic Valve AoV Peak Ycojktxt350.0cm/Marissa Peak GR.9mmHgAI P 1/2 [id number] Mitral Valve MV E Digaecny43.6cm/sMV A Vwmdtnch78.1cm/sE/A ratio0.6 TDI Lateral E' Peak V9.26cm/sMedial E' Peak V4.58cm/sE/Lateral E'5.5 E/Medial E'11.0 Pulmonary Valve PV Peak Elhjavdu63.1cm/sPV Peak Grad.2mmHg Tricuspid Valve TR Peak Jfmumdey085iu/sRAP [id number] Peak Gr.13mmHg [id number] LEFT VENTRICLE The left ventricle is normal size. There is normal left ventricular wall thickness. The systolic function is mildly to moderately impaired. There is moderate hypokinesis in the inferior wall. RIGHT VENTRICLE The right ventricle is normal size. The right ventricular systolic function is normal. ATRIA The left atrium size is normal. The right atrium size is normal. The interatrial septum is intact with no evidence for an atrial septal defect. AORTIC VALVE The aortic valve is normal in structure. There is mild aortic regurgitation. There is no aortic valvular stenosis. MITRAL VALVE The mitral valve is normal in structure. There is no mitral valve regurgitation noted. TRICUSPID VALVE The tricuspid valve is normal in structure. There is mild tricuspid regurgitation. PULMONIC VALVE The pulmonary valve is normal in structure. GREAT VESSELS The aortic root is normal in size. The IVC is normal in size and collapses >50% with inspiration. PERICARDIAL EFFUSION There is no pleural effusion. There is no pericardial effusion. <Conclusion> Normal chamber size. Mild to moderately reduced LV systolic function with moderate inferior hypokinesis. Mild AI. Mild TR.
[2017-06-13 07:01] VITALS: O2SAT 95
[2017-06-13 07:07] LABS: BASO # 0.04 K/mm3 (0.0-2.0); BASO % 0.8 % (0.0-3.0); EOS # 0.1 (0.0-0.7); EOS % 2.9 % (1.5-5.0); GRAN # 2.88 (1.4-6.5); GRAN % 59.1 % (50.0-68.0); HEMATOCRIT 43.9 % (42.0-52.0); LYMPH # 1.4 (1.2-3.4); MEAN CELL VOLUME 95.4 fl (80.0-105.0); MEAN CORPUSCULAR HEMOGLOBIN 33.5 pg (25.0-35.0); MEAN CORPUSCULAR HGB CONC 35.1 g/dl (31.0-37.0); MEAN PLATELET VOLUME 10.4 fl (7.0-11.0); MONO # 0.4 (0.1-0.6); MONO % 8.2 % (1.0-6.0); RED CELL DISTRIBUTION WIDTH 14.2 % (11.5-14.5); WHITE BLOOD COUNT 4.9 10^3/ul (4.5-11.0)
[2017-06-13 07:25] LABS: ALB/GLOB RATIO 1.5 (1.1-1.8); ALKALINE PHOSPHATASE 68 U/L (38-133); ALT/SGPT 50 U/L (7-56); AST/SGOT 84 U/L (15-59); BILIRUBIN,TOTAL 1.8 mg/dL (0.2-1.3); BLOOD UREA NITROGEN 11 mg/dL (7-21); CALCIUM 9.1 mg/dL (8.4-10.5); CARBON DIOXIDE 24 mmol/L (21-33); CHLORIDE 105 mmol/L (98-107); GFR AFRICAN-AMERICAN > 60; GLUCOSE,RANDOM 99 mg/dL (70-110); SODIUM 139 mmol/L (132-148); TOTAL PROTEIN 6.9 g/dL (5.8-8.3)
[2017-06-13 08:53] LABS: MAGNESIUM 2.2 mg/dL (1.7-2.2); PHOSPHOROUS 2.9 mg/dL (2.5-4.5)
[2017-06-13] MEDS: Multivitamin With Minerals Tab PO SCH (09:53)
[2017-06-13 11:31] VITALS: TEMP 97
--- NOTE | 2017-06-13 12:22 | PN ---
DATE: 06/13/2017 SUBJECTIVE: The patient is chest pain free. No shortness of breath. No chest pain. PHYSICAL EXAMINATION: VITAL SIGNS: Blood pressure 108/65, the heart rate is in the 50s. Normal sinus rhythm. NECK: Negative JVD. LUNGS: Without rales. HEART: S1, S2. EXTREMITIES: Without edema. LABORATORY DATA: Hemoglobin is 15.4. Chemistries unremarkable. IMPRESSION: 1. Status post acute inferior wall myocardial infarction. 2. Status post emergency PTCA and stent of an RCA. 3. History of hypertension. 4. History of alcoholism. Given these findings, we will do a low-level stress test. If the patient passes the low level stress test, the patient can be discharged today. We will consider bringing him back in and one or two weeks for potential PTCA of the LAD. Jim Saucedo MD
[2017-06-13 17:48] VITALS: BP 124/80; RESP 18
[2017-06-13 18:17] VITALS: PULSE 85
--- NOTE | 2017-06-14 10:08 | CP.PCM.DIS ---
<SISI FRANKEL - Last Filed: 06/14/17 10:01> Provider - Provider Date of Admission: 06/11/17 15:35 Attending physician: Roxana Simmons MD Primary care physician: Mitchel Santamaria JD, MD Consults: Cardio: Lewis Time Spent in preparation of Discharge (in minutes): 45 Diagnosis - Discharge Diagnosis (1) Alcohol withdrawal Status: Acute Priority: High (2) STEMI (ST elevation myocardial infarction) Status: Acute Priority: High Hospital Course - Lab Results Lab Results: Micro Results 06/11/17 15:40 Naris MRSA Culture (Admit) - Final MRSA NOT DETECTED Most Recent Lab Values WBC 4.9 10^3/ul (4.5-11.0) 06/13/17 06:30 RBC 4.60 10^6/uL (3.5-6.1) 06/13/17 06:30 Hgb 15.4 g/dL (14.0-18.0) 06/13/17 06:30 Hct 43.9 % (42.0-52.0) 06/13/17 06:30 MCV 95.4 fl (80.0-105.0) 06/13/17 06:30 MCH 33.5 pg (25.0-35.0) 06/13/17 06:30 MCHC 35.1 g/dl (31.0-37.0) 06/13/17 06:30 RDW 14.2 % (11.5-14.5) 06/13/17 06:30 Plt Count 153 10^3/uL (120.0-450.0) 06/13/17 06:30 MPV 10.4 fl (7.0-11.0) 06/13/17 06:30 Gran % 59.1 % (50.0-68.0) 06/13/17 06:30 Lymph % (Auto) 29.0 % (22.0-35.0) 06/13/17 06:30 [place] % (Auto) 8.2 % (1.0-6.0) H 06/13/17 06:30 Eos % (Auto) 2.9 % (1.5-5.0) 06/13/17 06:30 Baso % (Auto) 0.8 % (0.0-3.0) 06/13/17 06:30 Gran # 2.88 (1.4-6.5) 06/13/17 06:30 Lymph # 1.4 (1.2-3.4) 06/13/17 06:30 [place] # 0.4 (0.1-0.6) 06/13/17 06:30 Eos # 0.1 (0.0-0.7) 06/13/17 06:30 Baso # 0.04 K/mm3 (0.0-2.0) 06/13/17 06:30 PT 11.1 Seconds (9.9-11.8) 06/11/17 13:30 INR 1.03 (0.93-1.08) 06/11/17 13:30 Sodium 139 mmol/L (132-148) 06/13/17 06:30 Potassium 4.0 mmol/L (3.6-5.0) 06/13/17 06:30 Chloride 105 mmol/L (98-107) 06/13/17 06:30 Carbon Dioxide 24 mmol/L (21-33) 06/13/17 06:30 Anion Gap 14 (10-20) 06/13/17 06:30 BUN 11 mg/dL (7-21) 06/13/17 06:30 Creatinine 0.8 mg/dL (0.5-1.4) 06/13/17 06:30 Est GFR ( Amer) > 60 06/13/17 06:30 Est GFR (Non-Af Amer) > 60 06/13/17 06:30 Random Glucose 99 mg/dL (70-110) 06/13/17 06:30 Hemoglobin A1c 4.9 % (4.2-6.5) 06/12/17 05:30 Calcium 9.1 mg/dL (8.4-10.5) 06/13/17 06:30 Phosphorus 2.9 mg/dL (2.5-4.5) 06/13/17 06:30 Magnesium 2.2 mg/dL (1.7-2.2) 06/13/17 06:30 Total Bilirubin 1.8 mg/dL (0.2-1.3) H 06/13/17 06:30 AST 84 U/L (15-59) H 06/13/17 06:30 ALT 50 U/L (7-56) 06/13/17 06:30 Alkaline Phosphatase 68 U/L (38-133) 06/13/17 06:30 Lactate Dehydrogenase 542 U/L (333-699) 06/11/17 13:30 Total Creatine Kinase 190 U/L (35-230) 06/11/17 13:30 Troponin I 0.06 ng/mL 06/11/17 13:30 Total Protein 6.9 g/dL (5.8-8.3) 06/13/17 06:30 Albumin 4.1 g/dL (3.0-4.8) 06/13/17 06:30 Globulin 2.8 gm/dL 06/13/17 06:30 Albumin/Globulin Ratio 1.5 (1.1-1.8) 06/13/17 06:30 Triglycerides 164 mg/dL (35-160) H 06/12/17 05:30 Cholesterol 239 mg/dL (130-200) H 06/12/17 05:30 LDL Cholesterol Direct 188 mg/dL (0-129) H 06/12/17 05:30 HDL Cholesterol 52 mg/dL (29-60) 06/12/17 05:30 TSH 3rd Generation 4.1 MIU/ml (0.46-4.68) 06/12/17 05:30 - Hospital Course Hospital Course: 67 yo M with PMH of gout, HTN, HLD, carotid stenosis on ASA, and chronic alcohol abuse, who originally presented to ER for left arm pain of 2 hours. In the ER, EKG showed ST elevation and patient was taken to cath lab radiological technologist for PCI. A drug eluting stent was placed in his proximal RCA by Dr. Saucedo. During this procedure, the patient went into cardiac arrest but was given atropine and responded well. The patient was then admitted to the ICU for close monitoring and Q1 groin checks.EKG the following morning showed sinus bradycardia and an age indertiminate inferior wall infarction but no ST elevations. The EKG was repeated in the afternoon and showed sinus bradycardia with no ST changes. Echo showed mild to moderately reduced LV systolic function with moderate inferior hypokinesis. The patient is also a heavy drinker who admits to drinking 6-8 beers daily, so CIWA protocol and thiamine were started for alcohol abuse. Integrillin was discontinued 18 hrs post PCI. The patient was then transfered to telemetry where monitoring continued. Labs showed that the patient's cholesterol and LDL were elevated so Lipitor was started per Cardiology. Plavix and ASA were also given by Cardiology post VT. Today, patient said left arm pain has drastically improved and denied any chest pain, SOB, or F/C. On exam, patient was hemodynamically stable, was in no acute distress, and expressed that he felt very ready to go home. Light stress test conducted by cardiology showing no ST changes, and no chest pain. Patient was strongly encouraged to make positive lifestyle modifications including alcohol cessation. The patient also has chronic second-hand smoke exposure from , so she was encouraged to quit smoking. Outpatient follow up, all medical conditions, and medications were discussed at bedside and all questions were answered to the patient's satisfaction. The patient was discharged to return home, with instructions to return next week for re-cath. Patient was seen, discussed, and reviewed with attending. Discharge Exam - Head Exam Head Exam: ATRAUMATIC, NORMOCEPHALIC - Eye Exam Eye Exam: EOMI, PERRL - ENT Exam ENT Exam: Mucous Membranes Moist - Neck Exam Neck exam: Normal Inspection - Respiratory Exam Respiratory Exam: Clear to PA & Lateral. absent: Rales, Rhonchi, Wheezes - Cardiovascular Exam Cardiovascular Exam: Bradycardia, RRR, +S1, +S2 - GI/Abdominal Exam GI & Abdominal Exam: Normal Bowel Sounds, Soft. absent: Tenderness - Extremities Exam Extremities exam: normal inspection, pedal pulses present - Neurological Exam Neurological exam: Alert, Oriented x3 - Psychiatric Exam Psychiatric exam: Normal Affect, Normal Mood - Skin Skin Exam: Dry, Intact Discharge Plan - Discharge Medications Prescriptions: Atorvastatin [Lipitor] 40 mg PO DIN #30 tab Clopidogrel [Plavix] 75 mg PO DAILY #30 tab Folic Acid 1 mg PO DAILY #15 tab Lorazepam [Ativan] 0.5 mg PO Q6 PRN #6 tab PRN Reason: tremor Multimineral/Multivitamin [Therapeutic-M Tab] 1 tab PO 0800 #15 tab Thiamine [Vitamin B1 Tab] 100 mg PO DAILY #15 tab - Follow Up Plan Condition: CRITICAL Disposition: HOME/ ROUTINE Instructions: Myocardial Infarction (DC), Heart Healthy Diet (DC), Abuse of Alcohol (DC), Heart Catheterization (DC) Additional Instructions: 1. Continue to take all medications as prescribed, new prescriptions sent to [facility]'s pharmacy 2. No strenuous activity until after follow up with Dr. Saucedo 3. Return for repeat cath next at 0600 [address]. Follow up with Dr. Saucedo as indicated 5. Avoid drinking any alcohol, and avoid secondhand smoke 6. Use Ativan as needed for tremors 7. Follow up with PCP within 1 week 8. For any new or worsening concerns, contact PCP immediately or return to ER Referrals: Micthel Santamaria JD, MD [Primary Care Provider] - Follow up with primary <Roxana Simmons - Last Filed: 06/27/17 17:55> Provider - Provider Date of Admission: 06/11/17 15:35 Attending physician: Roxana Simmons MD Primary care physician: Mitchel Santamaria JD, MD Hospital Course - Lab Results Lab Results: Micro Results 06/11/17 15:40 Naris MRSA Culture (Admit) - Final MRSA NOT DETECTED Most Recent Lab Values WBC 4.9 10^3/ul (4.5-11.0) 06/13/17 06:30 RBC 4.60 10^6/uL (3.5-6.1) 06/13/17 06:30 Hgb 15.4 g/dL (14.0-18.0) 06/13/17 06:30 Hct 43.9 % (42.0-52.0) 06/13/17 06:30 MCV 95.4 fl (80.0-105.0) 06/13/17 06:30 MCH 33.5 pg (25.0-35.0) 06/13/17 06:30 MCHC 35.1 g/dl (31.0-37.0) 06/13/17 06:30 RDW 14.2 % (11.5-14.5) 06/13/17 06:30 Plt Count 153 10^3/uL (120.0-450.0) 06/13/17 06:30 MPV 10.4 fl (7.0-11.0) 06/13/17 06:30 Gran % 59.1 % (50.0-68.0) 06/13/17 06:30 Lymph % (Auto) 29.0 % (22.0-35.0) 06/13/17 06:30 [place] % (Auto) 8.2 % (1.0-6.0) H 06/13/17 06:30 Eos % (Auto) 2.9 % (1.5-5.0) 06/13/17 06:30 Baso % (Auto) 0.8 % (0.0-3.0) 06/13/17 06:30 Gran # 2.88 (1.4-6.5) 06/13/17 06:30 Lymph # 1.4 (1.2-3.4) 06/13/17 06:30 [place] # 0.4 (0.1-0.6) 06/13/17 06:30 Eos # 0.1 (0.0-0.7) 06/13/17 06:30 Baso # 0.04 K/mm3 (0.0-2.0) 06/13/17 06:30 PT 11.1 Seconds (9.9-11.8) 06/11/17 13:30 INR 1.03 (0.93-1.08) 06/11/17 13:30 Sodium 139 mmol/L (132-148) 06/13/17 06:30 Potassium 4.0 mmol/L (3.6-5.0) 06/13/17 06:30 Chloride 105 mmol/L (98-107) 06/13/17 06:30 Carbon Dioxide 24 mmol/L (21-33) 06/13/17 06:30 Anion Gap 14 (10-20) 06/13/17 06:30 BUN 11 mg/dL (7-21) 06/13/17 06:30 Creatinine 0.8 mg/dL (0.5-1.4) 06/13/17 06:30 Est GFR ( Amer) > 60 06/13/17 06:30 Est GFR (Non-Af Amer) > 60 06/13/17 06:30 Random Glucose 99 mg/dL (70-110) 06/13/17 06:30 Hemoglobin A1c 4.9 % (4.2-6.5) 06/12/17 05:30 Calcium 9.1 mg/dL (8.4-10.5) 06/13/17 06:30 Phosphorus 2.9 mg/dL (2.5-4.5) 06/13/17 06:30 Magnesium 2.2 mg/dL (1.7-2.2) 06/13/17 06:30 Total Bilirubin 1.8 mg/dL (0.2-1.3) H 06/13/17 06:30 AST 84 U/L (15-59) H 06/13/17 06:30 ALT 50 U/L (7-56) 06/13/17 06:30 Alkaline Phosphatase 68 U/L (38-133) 06/13/17 06:30 Lactate Dehydrogenase 542 U/L (333-699) 06/11/17 13:30 Total Creatine Kinase 190 U/L (35-230) 06/11/17 13:30 Troponin I 0.06 ng/mL 06/11/17 13:30 Total Protein 6.9 g/dL (5.8-8.3) 06/13/17 06:30 Albumin 4.1 g/dL (3.0-4.8) 06/13/17 06:30 Globulin 2.8 gm/dL 06/13/17 06:30 Albumin/Globulin Ratio 1.5 (1.1-1.8) 06/13/17 06:30 Triglycerides 164 mg/dL (35-160) H 06/12/17 05:30 Cholesterol 239 mg/dL (130-200) H 06/12/17 05:30 LDL Cholesterol Direct 188 mg/dL (0-129) H 06/12/17 05:30 HDL Cholesterol 52 mg/dL (29-60) 06/12/17 05:30 TSH 3rd Generation 4.1 MIU/ml (0.46-4.68) 06/12/17 05:30 Attending/Attestation - Attestation I have personally seen and examined this patient.: Yes I have fully participated in the care of the patient.: Yes I have reviewed all pertinent clinical information, including history, physical exam and plan: Yes Notes (Text): I have seen and examined the patient at bedside. Agree with the above note with the following additions/ exceptions: Briefly this is 67 year old male with history of HTN, HLD, EtOH abuse, former smoker who walked into the ED and code heart/ STEMI was called. He underwent cardiac cath and stents were placed in proximal RCA. Patient reported briefly had cardiogenic shock during cath with asystole, though quickly responded to atropine and pressors. He still has bradycardia however hemodynamically stable. He also has dyslipidemia and is on lipitor. Continue asa and plavix. Avoid beta blockers. Patient will come back for PTCA of LAD as per coater associate. As patient has long history of alcohol abuse, we will monitor carefully for withdrawal symptoms. Continue thiamine, MVI and folic acid. Counselling was provided regarding alcohol abuse. Upon discharge patient will follow up with Dr Santamaria. Dr Roxana Simmons.
== END 2017-06-13 18:32 | disposition home or self-care (01) | DRG 246 ==
LOC: ED 13:16 → NEURO 13:52 → CCU 15:35 → 2RSO 06-12 10:08
PROVIDERS: ADMIT Internal Medicine Cardiovascular Disease; ATTEND Hospitalist
PROC: 027034Z Dilation of Coronary Artery, One Artery with Drug-eluting Intraluminal Device, Percutaneous Approach (ICD-10-PCS; principal; 2017-06-11)
PROC: 4A023N7 Measurement of Cardiac Sampling and Pressure, Left Heart, Percutaneous Approach (ICD-10-PCS; 2017-06-11)
PROC: B211YZZ Fluoroscopy of Multiple Coronary Arteries using Other Contrast (ICD-10-PCS; 2017-06-11)
PROC: B215YZZ Fluoroscopy of Left Heart using Other Contrast (ICD-10-PCS; 2017-06-11)
DX: I21.19 ST elevation (STEMI) myocardial infarction involving other coronary artery of inferior wall (principal); T81.11XA Postprocedural cardiogenic shock, initial encounter; I97.710 Intraoperative cardiac arrest during cardiac surgery; F10.239 Alcohol dependence with withdrawal, unspecified; I10 Essential (primary) hypertension; I25.10 Atherosclerotic heart disease of native coronary artery without angina pectoris; M10.9 Gout, unspecified; I65.29 Occlusion and stenosis of unspecified carotid artery; R00.1 Bradycardia, unspecified; E78.00 Pure hypercholesterolemia, unspecified; Z77.22 Contact with and (suspected) exposure to environmental tobacco smoke (acute) (chronic); Y84.0 Cardiac catheterization as the cause of abnormal reaction of the patient, or of later complication, without mention of misadventure at the time of the procedure; Z79.82 Long term (current) use of aspirin; Z87.891 Personal history of nicotine dependence; Z82.49 Family history of ischemic heart disease and other diseases of the circulatory system

== ENCOUNTER 2018-07-01 19:45 | Observation (INO) | payer MEDICARE ==
[2018-07-01 20:47] VITALS: BMI 26.6
[2018-07-01 22:53] LABS: BASO # 0.05 K/mm3 (0.0-2.0); BASO % 0.8 % (0.0-3.0); EOS # 0.3 (0.0-0.7); EOS % 4.1 % (1.5-5.0); GRAN # 3.82 (1.4-6.5); GRAN % 59.9 % (50.0-68.0); HEMOGLOBIN 14.4 g/dL (14.0-18.0); LYMPH # 1.7 (1.2-3.4); LYMPH % 26.6 % (22.0-35.0); MEAN CELL VOLUME 92.7 fl (80.0-105.0); MEAN CORPUSCULAR HEMOGLOBIN 31.9 pg (25.0-35.0); MEAN CORPUSCULAR HGB CONC 34.4 g/dl (31.0-37.0); MEAN PLATELET VOLUME 10.1 fl (7.0-11.0); MONO # 0.6 (0.1-0.6); MONO % 8.6 % (1.0-6.0); RBC 4.51 10^6/uL (3.5-6.1); RED CELL DISTRIBUTION WIDTH 14.2 % (11.5-14.5); WHITE BLOOD COUNT 6.4 10^3/ul (4.5-11.0)
[2018-07-01 22:58] LABS: BLOOD UREA NITROGEN 15 mg/dL (7-21); CALCIUM 9.3 mg/dL (8.4-10.5); GFR NON-AFRICAN AMERICAN > 60
[2018-07-01 23:01] LABS: ALB/GLOB RATIO 1.4 (1.1-1.8); ALBUMIN 4.3 g/dL (3.0-4.8); ALT/SGPT 26 U/L (7-56); AST/SGOT 47 U/L (17-59)
[2018-07-01 23:16] LABS: TROPONIN I < 0.01 ng/mL
--- NOTE | 2018-07-01 23:50 | ED PDOC ---
Arrival/HPI - General Chief Complaint: Upper Extremity Problem/Injury Time Seen by Provider: 07/01/18 20:56 Historian: Patient - History of Present Illness Narrative History of Present Illness (Text): 07/01/18 23:48 68-year-old male with a history of CAD presents today with left-sided shoulder pain. Patient denies numbness weakness or tingling in the extremity. Denies limited range of motion. Patient denies pain with range of motion of the shoulder. Patient denies chest pain but states he does have a pain across the clavicle of the left shoulder. Patient denies nausea vomiting diarrhea or constipation. Patient states he had a prior DC only with symptoms of left arm pain. Patient states symptoms have been intermittent for the past week but became severe today. No medications have been taken at home. No other complaints Past Medical History - Provider Review Nursing Documentation Reviewed: Yes - Travel History Have you recently traveled outside [place] w/in the past 3 mons?: No - Infectious Disease Hx of Infectious Diseases: None - Cardiac Hx DC: Yes Hx Hypertension: Yes - Neurological Hx Paralysis: No - Hematological/Oncological Hx Blood Transfusions: No - Musculoskeletal/Rheumatological Hx Musculoskeletal Disorders: No - Gastrointestinal Other/Comment: Alcoholism - Psychiatric Hx Emotional Abuse: No Hx Physical Abuse: No Hx Substance Use: No - Anesthesia Hx Anesthesia: Yes Hx Anesthesia Reactions: No Hx Malignant Hyperthermia: No - Suicidal Assessment Feels Threatened In Home Enviroment: No Family/Social History - Physician Review Nursing Documentation Reviewed: Yes Family/Social History: Unknown Family HX Smoking Status: Unknown If Ever Smoked Hx Alcohol Use: Yes (6-12 beers a day;NONE SINCE 06/11/17) Hx Substance Use: No Allergies/Home Meds Allergies/Adverse Reactions: Allergies No Known Allergies Allergy (Unverified 07/01/18 20:47) Home Medications: Home Meds Medication Instructions Recorded Confirmed Aspirin [[place] Aspirin] 81 mg PO DAILY 06/11/17 07/01/18 Colchicine 0.6 mg PO BID 06/14/17 07/01/18 Review of Systems - Review of Systems Constitutional: absent: Fatigue, Fevers Respiratory: absent: SOB, Cough Cardiovascular: Chest Pain. absent: Palpitations Gastrointestinal: absent: Abdominal Pain, Nausea, Vomiting Musculoskeletal: Arthralgias. absent: Back Pain, Neck Pain Skin: absent: Rash, Pruritis Neurological: absent: Headache, Dizziness Psychiatric: absent: Anxiety, Depression Physical Exam Vital Signs Reviewed: Yes Vital Signs Temp Pulse Resp BP Pulse Ox 07/02/18 02:32 97.9 F 72 18 143/87 97 07/01/18 22:00 64 18 157/80 H 96 07/01/18 20:48 98.2 F 61 18 165/89 H 98 Temperature: Afebrile Blood Pressure: Hypertensive Pulse: Regular Respiratory Rate: Normal Appearance: Positive for: Well-Appearing, Non-Toxic, Comfortable Pain Distress: None Mental Status: Positive for: Alert and Oriented X 3 - Systems Exam Head: Present: Atraumatic Mouth: Present: Moist Mucous Membranes Neck: Present: Normal Range of Motion Respiratory/Chest: Present: Clear to Auscultation, Good Air Exchange. No: Respiratory Distress, Accessory Muscle Use Cardiovascular: Present: Regular Rate and Rhythm, Normal S1, S2. No: Murmurs Abdomen: No: Tenderness, Rebound, Guarding Upper Extremity: Present: Normal ROM, NORMAL PULSES, Neurovascularly Intact, Capillary Refill < 2s. No: Tenderness, Swelling, Erythema, Deformity Neurological: Present: GCS=15, Speech Normal, Gait Normal Skin: Present: Warm, Dry, Normal Color. No: Rashes Psychiatric: Present: Alert, Oriented x 3 Medical Decision Making ED Course and Treatment: 07/01/18 23:49 pt with left clavicle and left shoulder pain. No trauma or injury. cbc; within normal limits cmp; within normal limits trop: Within normal limits ekg; normal sinus rhythm at 60 bpm normal axis no ST elevations cxr: wnl Left shoulder x-ray: wnl asa pt reassessment; pt resting comfortably in er. no distress. case discussed with Dr. Santamaria; dr. knapp is covering his patients. case discussed with dr. knapp; will Admit observational status to Tele for chest pain r/o acs. impression; chest pain Admit observational status to tele - Lab Interpretations Lab Results: 07/01/18 22:43 07/01/18 22:43 Lab Results 07/01/18 22:43: WBC 6.4, RBC 4.51, Hgb 14.4, Hct 41.8 L, MCV 92.7 D, MCH 31.9, MCHC 34.4, RDW 14.2, Plt Count 221, MPV 10.1, Gran % 59.9, Lymph % (Auto) 26.6, [place] % (Auto) 8.6 H, Eos % (Auto) 4.1, Baso % (Auto) 0.8, Gran # 3.82, Lymph # (Auto) 1.7, [place] # (Auto) 0.6, Eos # (Auto) 0.3, Baso # (Auto) 0.05 07/01/18 22:43: Sodium 139, Potassium 3.6, Chloride 106, Carbon Dioxide 24, Anion Gap 13, BUN 15, Creatinine 0.8, Est GFR ( Amer) > 60, Est GFR (Non- Af Amer) > 60, Random Glucose 138 H, Calcium 9.3, Total Bilirubin 0.8, AST 47, ALT 26, Alkaline Phosphatase 89, Lactate Dehydrogenase 582, Total Creatine Kinase 148, Troponin I < 0.01 D, Total Protein 7.4, Albumin 4.3, Globulin 3.2, Albumin/Globulin Ratio 1.4 - RAD Interpretation Radiology Orders: 07/01/18 20:57 CHEST ONE VIEW [RAD] Stat SHOULDER LEFT [RAD] Stat - Medication Orders Current Medication Orders: Discontinued Medications Aspirin (Aspirin) 325 mg PO STAT STA Stop: 07/02/18 00:47 Last Admin: 07/02/18 01:39 Dose: 325 mg Disposition/Present on Arrival - Present on Arrival Any Indicators Present on Arrival: No History of DVT/PE: No History of Uncontrolled Diabetes: No Urinary Catheter: No History of Decub. Ulcer: No History Surgical Site Infection Following: None - Disposition Have Diagnosis and Disposition been Completed?: Yes Diagnosis: Shoulder pain, Chest pain Disposition: HOSPITALIZED Disposition Time: 00:40 Patient Plan: Observation Condition: FAIR
[2018-07-02] MEDS ORDERED: Pneumococcal 23-Valent Vaccine IM ONE (05:28)
--- NOTE | 2018-07-02 09:35 | RAD ---
Date of service: 07/02/2018 PROCEDURE: CHEST RADIOGRAPH, 1 VIEW HISTORY: chest pain COMPARISON: 06/11/2017 FINDINGS: LUNGS: Clear. PLEURA: No pneumothorax or pleural fluid seen. CARDIOVASCULAR: Normal. OSSEOUS STRUCTURES: No significant abnormalities. VISUALIZED UPPER ABDOMEN: Normal. OTHER FINDINGS: None. IMPRESSION: No active disease.
--- NOTE | 2018-07-02 09:38 | RAD ---
Date of service: 07/02/2018 PROCEDURE: Radiographs of the Left Shoulder HISTORY: shoulder pain COMPARISON: No prior. FINDINGS: BONES: No fracture. No dislocation. Acromioclavicular degenerative arthritis. No articular erosions. JOINTS: Normal. Glenohumeral and acromioclavicular joints preserved. No osteoarthritis. SOFT TISSUES: Normal. OTHER FINDINGS: None. IMPRESSION: No fracture/dislocation. Acromioclavicular degenerative arthritis.
[2018-07-02 11:19] LABS: HDL CHOLESTEROL 57 mg/dL (29-60)
[2018-07-02 11:29] LABS: LDL CHOLESTEROL 63 mg/dL (0-129)
[2018-07-02 11:32] LABS: TROPONIN I < 0.01 ng/mL
[2018-07-02 11:40] LABS: FREE T4 0.87 ng/dL (0.78-2.19)
[2018-07-02 23:34] VITALS: RESP 18
--- NOTE | 2018-07-03 06:01 | HP ---
The patient is a 68-year-old male. CHIEF COMPLAINT: Chest pain and shoulder pain. HISTORY OF PRESENT ILLNESS: Mr. Jovan Horne is a 68-year-old male with history of coronary artery disease, came to the emergency room with left-sided shoulder pain and chest pain. The patient denies numbness, weakness, or tingling sensation of the upper extremity. Denies limited range of motion. The patient denies pain with range of motion of the shoulder. No fever. No chills. No nausea, vomiting, or diarrhea. The patient denies hematuria or hematochezia. The patient states that he has history of CT only with symptoms of left arm pain. The patient states symptoms had been intermittent for the past week, but became severe today that brought him to the emergency room. No medications at home had been taken for pain. PAST MEDICAL HISTORY: Hypertension. FAMILY HISTORY: Father and mother, noncontributory. HABITS: Denied smoking. Alcohol, yes, 6 to 12 beers a day since age 16 or 15. Substance abuse, no. ALLERGIES: THE PATIENT IS NOT ALLERGIC WITH ANY MEDICATIONS. HOME MEDICATIONS: Aspirin and colchicine. REVIEW OF SYSTEMS: The patient was seen and examined at the bedside. is standing on the bedside also. Looking comfortable. Complaining about left shoulder pain. No history of fatigue, fever, shortness of breath, or coughing. No abdominal pain, nausea, or vomiting. No back pain or neck pain. No rash, pruritus, headache, dizziness, depression, or anxiety. PHYSICAL EXAMINATION: VITAL SIGNS: Temperature 98.2, pulse 51, respiratory rate 18, blood pressure 165/89, pulse oximetry of 98. HEENT: Head is normocephalic and atraumatic. Eyes; PERRLA. Extraocular muscles are intact. Conjunctivae are clear. Nose is patent. Mucous membranes are moist. NECK: Supple. No carotid bruits. No JVD or thyromegaly. CHEST: Bilaterally symmetrical. HEART: S1 and S2 positive. LUNGS: Clear to auscultation. ABDOMEN: Soft. Bowel sounds present. No organomegaly. EXTREMITIES: No edema. No cyanosis. NEUROLOGIC: The patient is awake and alert. Moving all 4 extremities. No focal deficit. LABORATORY DATA: White blood cells 6.4, hemoglobin 14.4, hematocrit 41.8, and platelet 221. Sodium 139, potassium 3.3, BUN 50, creatinine 0.8, glucose 138. ASSESSMENT AND PLAN: Mr. Jovan Horne is a 68-year-old male with hyperglycemia, came with shoulder pain and chest pain, history of coronary artery disease. X-ray of the shoulder done. No fracture, dislocation or acromioclavicular degenerative arthritis. We admitted the patient. Put Cardiology consult with Dr. Jim Suacedo. Aspirin given. Colchicine is started. Atorvastatin for hypercholesterolemia. Plavix for coronary artery disease. Tramadol stated. Heart-healthy diet given. I will call Orthopedic consult. We will do MRI of the shoulder. Repeat labs. We will follow up. Nusrat Toledo MD
[2018-07-03 06:59] VITALS: O2SAT 95
[2018-07-03] MEDS ORDERED: MethylPREDNISolone Depo 40 mg/ml Inj IM ONE (07:02)
[2018-07-03] MEDS ORDERED: Bupivacaine 0.5% Inj(30mL) IJ ONE (07:02)
[2018-07-03 07:24] LABS: MEAN CELL VOLUME 94.2 fl (80.0-105.0); MEAN CORPUSCULAR HEMOGLOBIN 31.1 pg (25.0-35.0); MEAN PLATELET VOLUME 10.4 fl (7.0-11.0); RBC 4.5 10^6/uL (3.5-6.1); RED CELL DISTRIBUTION WIDTH 14.6 % (11.5-14.5); WHITE BLOOD COUNT 5.4 10^3/ul (4.5-11.0)
[2018-07-03 07:41] LABS: BLOOD UREA NITROGEN 13 mg/dL (7-21); GFR NON-AFRICAN AMERICAN > 60; HDL CHOLESTEROL 43 mg/dL (29-60); URIC ACID 6.6 mg/dL (3.5-8.5)
[2018-07-03 07:52] LABS: LDL CHOLESTEROL 58 mg/dL (0-129)
--- NOTE | 2018-07-03 09:36 | CON ---
DATE: 07/03/2018 CARDIOLOGY CONSULTATION HISTORY OF PRESENT ILLNESS: The patient is a 68-year-old male, who presents with left shoulder pain. No chest pain noted. The patient's past medical history includes an inferior wall RI in the past, which was treated with emergency PTCA and stent. In addition, the patient had multivessel CAD, was treated with multiple stents. The patient underwent cardiac evaluation in 12/2017 where a stress test revealed no ischemia with good LV function. The patient has been chest pain free. He does complain of left shoulder pain. The patient's past medical history includes a history of gout, history of hypercholesterolemia. The patient has been exercising on his treadmill three times a week without symptoms. SOCIAL HISTORY: The patient does not smoke. REVIEW OF SYSTEMS: Fourteen-point review of systems is reviewed. No cardiac symptomatology noted. PHYSICAL EXAMINATION: VITAL SIGNS: Blood pressure is 121/78, the heart rate is in the 60s. NECK: Negative JVD. LUNGS: Without rales. HEART: Reveals S1, S2. EXTREMITIES: Without edema. EKG shows no acute changes. LABORATORY DATA: Troponins are negative x2. BUN and creatinine are unremarkable. The cholesterol is 114. The hemoglobin is 14. IMPRESSION: 1. Stable angina. 2. No evidence for acute coronary syndrome. 3. Old inferior wall myocardial infarction. 4. Hypercholesterolemia. 5. Left shoulder pain, which is not cardiac in nature. 6. History of multivessel percutaneous transluminal coronary angioplasty. PLAN: Given these findings, we will discontinue telemetry today. No further cardiac workup is indicated at this time. From a cardiac perspective, the patient can be discharged. Jim Saucedo MD
[2018-07-03] MEDS: Lidocaine 5% Patch TOP SCH ×2 (09:50→14:50)
[2018-07-03 12:11] VITALS: BP 134/89; PULSE 53; TEMP 98.2
--- NOTE | 2018-07-03 13:14 | MRI ---
Date of service: 07/03/2018 PROCEDURE: MRI of the left shoulder without contrast HISTORY: pain COMPARISON: Shoulder x-ray 07/02/2018 TECHNIQUE: MRI of the left shoulder was performed in multiple planes using multiple pulse sequences. FINDINGS: There is a small linear partial tear of the distal rotator cuff at the insertion of the supraspinatus. There is no evidence of full-thickness tear. The rotator cuff muscles are normal in size with no atrophy. There is no tendon retraction. Severe degenerative changes are seen in the acromioclavicular joint. There is fluid in the joint space. The glenoid labrum and biceps tendon are intact. There is no joint effusion IMPRESSION: There is a small linear partial tear of the distal rotator cuff at the insertion of the supraspinatus. There is no evidence of full-thickness tear.
--- NOTE | 2018-07-03 17:54 | CON ---
DATE: 07/03/2018 ORTHOPEDIC CONSULT HISTORY OF PRESENT ILLNESS: A 68-year-old male. Patient has extreme pinpoint pain of left shoulder right over the AC joint. 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 X-ray shows osteoarthritis of the left AC joint, so we injected the area with a Depo-Medrol and Marcaine from superiorly to get into the joint area. This should help his arthritic pain. I do not know how long it will last. I told him, he could give me a call if he does not get better then we could always do something else. FINAL DIAGNOSES: Acromioclavicular joint arthritis, left nondominant shoulder and that we injected with Depo-Medrol and Marcaine today. Lane Vega DO
== END 2018-07-03 15:16 | disposition home or self-care (01) ==
LOC: ED 19:45 → ERH 07-02 00:55 → 2RNO 07-02 03:14
PROVIDERS: ADMIT Internal Medicine; ATTEND Internal Medicine
DX: M19.012 Primary osteoarthritis, left shoulder (principal); I25.118 Atherosclerotic heart disease of native coronary artery with other forms of angina pectoris; I25.2 Old myocardial infarction; E78.00 Pure hypercholesterolemia, unspecified; I10 Essential (primary) hypertension; R73.9 Hyperglycemia, unspecified; Z95.5 Presence of coronary angioplasty implant and graft
CPT/HCPCS: 20610; 36415; 71045; 73030; 73221; 80048; 80053; 80061; 82550; 83036; 83615; 84439; 84443; 84484; 84550; 85025; 85027; 99285; G0378